=== PATIENT | male | born 1945 | race Caucasian/White ===

== ENCOUNTER 2018-01-29 05:55 | Inpatient (IN) | payer BC, OTHER ==
[2018-01-24 15:47] VITALS: BMI 27.7
[2018-01-29] MEDS ORDERED: DEXAMETHASONE SOD PHOSPHATE/PF 10 MG/ML SDV ONE (06:43)
[2018-01-29] MEDS ORDERED: MIDAZOLAM HCL 2 MG/2 ML SINGLE DOSE VIAL ONE ×2 (06:43→07:12)
[2018-01-29] MEDS ORDERED: ROPIVACAINE HCL 0.5% 30ML VIAL ONE (06:43)
[2018-01-29] MEDS ORDERED: PROPOFOL 20 ML ONE ×2 (07:12)
[2018-01-29] MEDS ORDERED: SUCCINYLCHOLINE CHLORIDE 200 MG/10 ML VIAL ONE (07:12)
--- NOTE | 2018-01-29 07:13 | HP ---
History & Physical Update - History History: No Change - Physical Physical: No Change - Assessment Assessment: No Change - Plan Plan: No Change (no interval changes in health since visit with Dr. Godinez on 01/21/18. will proceed with surgery as discussed with Dr Craven)
[2018-01-29] MEDS ORDERED: VANCOMYCIN 1,000 MG VIAL (RESTRICTED TO ID ONLY) ONE (07:22)
[2018-01-29] MEDS ORDERED: ceFAZolin SODIUM 1 GM VIAL ONE ×2 (07:44→09:14)
[2018-01-29] MEDS ORDERED: TRANEXAMIC ACID 1000 MG/10 ML VIAL ONE (07:56)
[2018-01-29] MEDS ORDERED: VANCOMYCIN 1,000 MG in DEXTROSE 5%-WATER - 250 ML IVPB ONE (08:00)
[2018-01-29] MEDS ORDERED: CEFAZOLIN 2 GM in DEXTROSE 5%-WATER - 50 ML IVPB ONE (08:00)
[2018-01-29] MEDS ORDERED: ROPIVICAINE 0.2%/MORPH PF/KETOROLAC - 51ML DISP.SYRINGE IA ONE (08:00)
[2018-01-29] MEDS ORDERED: TRANEXAMIC ACID 1000 MG/10 ML VIAL IVPUSH ONE (08:00)
[2018-01-29] MEDS ORDERED: LIDOCAINE HCL/PF 2% SDV 5ML VIAL ONE (08:05)
[2018-01-29] MEDS ORDERED: ROCURONIUM BROMIDE 50 MG/5 ML VIAL ONE (08:05)
--- NOTE | 2018-01-29 09:51 | OP ---
Operative Note - Note: Operative Date: 01/29/18 Pre-Operative Diagnosis: R hip DJD Operation: R CHRIS Implants: Dave. Cup - Tritanium 54mm. Poly - 28mm, neutral. Stem - Secure Fit Advanced #6. Head - 28mm, +12mm Post-Operative Diagnosis: Same as Pre-op Surgeon: Mil Craven Automated Process Operator: Tom Craven (Co-Surgeon) Anesthesiologist/BACKHAUL DRIVER: Chandu Amanda Anesthesia: General, Spinal Specimens Removed: Right femoral head Estimated Blood Loss (mls): 250 Drains & Tubes with Location: 1 x deep HemoVac Operative Report Dictated: Yes
--- NOTE | 2018-01-29 09:53 | PN ---
Progress Note (short form) - Note Progress Note: 72M s/p R CHRIS POD #0. -Pain control. -DVT PPx: - Mechanical: SCD's, IRMA's. - Chemical: ASA 81mg PO BID x 6 weeks. -Incentive spirometry. -PT/OT/Rehab, OOB. -WBAT RLE. -R hip precautions. -R hip abduction pillow. -f/u AM labs. -f/u drain output. -f/u TOV. -Care per medical hospitalist team. -Discharge planning. -Will follow. Tom Craven MD (Orthopaedic Surgery).
[2018-01-29] MEDS ORDERED: MAGNESIUM HYDROX 2400MG/30ML ORAL SUSPENSION 30 ML CUP PO PRN (09:54)
[2018-01-29] MEDS ORDERED: MAG HYDROX/AL HYDROX/SIMETH 30 ML UNIT-DOSE CUP PO PRN (09:54)
[2018-01-29] MEDS ORDERED: ONDANSETRON 4 MG/2 ML VIAL IVPUSH PRN ×2 (09:54→09:56)
[2018-01-29] MEDS ORDERED: oxyCODONE HCL 5 MG TABLET PO PRN (09:56)
[2018-01-29] MEDS ORDERED: GABAPENTIN 300 MG CAPSULE (FP) PO SCH (10:00)
[2018-01-29] MEDS ORDERED: LACTATED RINGERS SOLUTION 1,000 ML IV SCH ×2 (10:00)
[2018-01-29] MEDS ORDERED: ALBUTEROL SO4 18 GM HFA INHALER IH PRN (10:00)
[2018-01-29] MEDS ORDERED: ONDANSETRON 4 MG/2 ML VIAL IVPUSH ONE (10:13)
[2018-01-29] MEDS ORDERED: ACETAMINOPHEN 325 MG TABLET (FP) PO ONE (10:35)
[2018-01-29] MEDS ORDERED: oxyCODONE HCL 10 MG SUSTAINED ACTING TABLET ONE (10:36)
[2018-01-29] MEDS ORDERED: oxyCODONE HCL 10 MG SUSTAINED ACTING TABLET PO ONE (10:37)
--- NOTE | 2018-01-29 12:51 | SURG ---
Surgery Girls Swimming Coach Note Girls Swimming Coach: Adrienne Shah PA-C Date of Service: 01/29/18 Diagnosis: right hip OA Procedure: Right CHRIS I was present for the entirety of the operative procedure. For further detail, please refer to operative report. Visit type - Case Type Case Type: Scheduled Admission - Emergency Emergency Visit: No - New patient This patient is new to me today: Yes Date on this admission: 01/29/18
[2018-01-29] MEDS: oxyCODONE HCL 5 MG TABLET PO PRN ×2 (13:34→23:10)
[2018-01-29] MEDS: CEFAZOLIN 2 GM/D5W 2 GM/50 ML ML IVPB SCH (17:00)
[2018-01-29] MEDS ORDERED: VANCOMYCIN 1 GRAM (PRE-DOCKED) 1,000 MG/250 ML BAG IVPB ONE (21:00)
[2018-01-29] MEDS ORDERED: PT OWN MED DRAWER 7, Y5N ONE (21:05)
[2018-01-29] MEDS: OLANZapine 5 MG TABLET PO SCH (21:46)
[2018-01-29] MEDS: ASPIRIN 81 MG CHEWABLE TABLETS PO SCH (21:46)
[2018-01-29] MEDS: PREGABALIN 50 MG CAPSULE PO SCH (21:46)
[2018-01-29] MEDS: oxyCODONE HCL 10 MG SUSTAINED ACTING TABLET PO SCH (21:46)
[2018-01-29] MEDS: SENNOSIDES/DOCUSATE COMBO (SENNA PLUS) TABLET (UD) PO SCH (21:47)
[2018-01-29] MEDS: ACETAMINOPHEN 325 MG TABLET (FP) PO SCH (23:00)
[2018-01-30] MEDS: CEFAZOLIN 2 GM/D5W 2 GM/50 ML ML IVPB SCH (01:00)
[2018-01-30] MEDS: ACETAMINOPHEN 325 MG TABLET (FP) PO SCH ×5 (05:25→23:00)
[2018-01-30] MEDS: oxyCODONE HCL 5 MG TABLET PO PRN (05:30)
[2018-01-30] MEDS ORDERED: PT OWN MED DRAWER 7, Y5N ONE ×2 (05:32→21:46)
[2018-01-30] MEDS: SENNOSIDES/DOCUSATE COMBO (SENNA PLUS) TABLET (UD) PO SCH ×3 (08:49→22:31)
[2018-01-30] MEDS: oxyCODONE HCL 10 MG SUSTAINED ACTING TABLET PO SCH ×3 (08:49→22:31)
[2018-01-30] MEDS: PANTOPRAZOLE 40 MG TABLET (FP) PO SCH ×2 (08:49→09:46)
[2018-01-30 09:22] LABS: HEMATOCRIT 33.8 % (35.4-49); HEMOGLOBIN 11.3 GM/dl (11.7-16.9); MCH 29.1 pg (25.7-33.7); MCHC 33.4 g/dl (32.0-35.9); MEAN PLT VOLUME 7.5 fl (7.5-11.1); PLATELET COUNT 212 K/MM3 (134-434); RBC 3.89 M/mm3 (4.00-5.60); RDW 12.4 % (11.9-15.9); WHITE BLOOD COUNT 8.6 K/mm3 (4.0-10.8)
[2018-01-30 09:39] LABS: ANION GAP 5 (8-16); BLOOD UREA NITROGEN 18 mg/dl (7-18); CALCIUM 8.2 mg/dl (8.4-10.2); CHLORIDE 98 mmol/L (98-107); CO2 28 mmol/L (22-28); CREATININE 0.9 mg/dl (0.6-1.3); GLUCOSE,RANDOM 182 mg/dl (74-106); SODIUM 131 mmol/L (136-145)
[2018-01-30] MEDS: ASPIRIN 81 MG CHEWABLE TABLETS PO SCH ×2 (09:44→22:31)
--- NOTE | 2018-01-30 09:55 | CONSULT ---
Consultation: REQUESTING PROVIDER: Dr Craven CONSULT REQUEST: We have been asked to medically evaluate this patient for medical management. HISTORY OF PRESENT ILLNESS: Patient is a 72 y/o male with a past medical history of copd, spinal fusion, left hip osteoarthritis. Patient is s/p left hip replacement, Dr Craven, POD #1. REVIEW OF SYSTEMS: CONSTITUTIONAL: Absent: fever, chills, diaphoresis, generalized weakness, malaise, loss of appetite, weight change HEENT: Absent: rhinorrhea, nasal congestion, throat pain, throat swelling, difficulty swallowing, mouth swelling, ear pain, eye pain, visual changes CARDIOVASCULAR: Absent: chest pain, syncope, palpitations, irregular heart rate, lightheadedness , peripheral edema RESPIRATORY: Absent: cough, shortness of breath, dyspnea with exertion, orthopnea, wheezing, stridor, hemoptysis GASTROINTESTINAL: Absent: abdominal pain, abdominal distension, nausea, vomiting, diarrhea, constipation, melena, hematochezia GENITOURINARY: Absent: dysuria, frequency, urgency, hesitancy, hematuria, flank pain, genital pain MUSCULOSKELETAL: Present: left hip pain Absent: myalgia, arthralgia, joint swelling, back pain, neck pain SKIN: Absent: rash, itching, pallor HEMATOLOGIC/IMMUNOLOGIC: Absent: easy bleeding, easy bruising, lymphadenopathy, frequent infections ENDOCRINE: Absent: unexplained weight gain, unexplained weight loss, heat intolerance, cold intolerance NEUROLOGIC: Absent: headache, focal weakness or paresthesias, dizziness, unsteady gait, seizure, mental status changes, bladder or bowel incontinence PSYCHIATRIC: Absent: anxiety, depression, suicidal or homicidal ideation, hallucinations. PHYSICAL EXAMINATION Vital Signs - 24 hr 01/29/18 01/29/18 01/29/18 10:03 10:05 10:10 Temperature 98.8 F Pulse Rate 97 H 88 88 Respiratory 18 18 18 Rate Blood Pressure 151/88 156/82 150/85 O2 Sat by Pulse 96 98 100 Oximetry (%) 01/29/18 01/29/18 01/29/18 10:15 10:30 10:45 Temperature Pulse Rate 87 86 88 Respiratory 18 18 18 Rate Blood Pressure 139/79 139/68 164/98 O2 Sat by Pulse 100 99 98 Oximetry (%) 01/29/18 01/29/18 01/29/18 11:00 11:15 11:25 Temperature Pulse Rate 92 H 89 89 Respiratory 18 18 18 Rate Blood Pressure 153/90 167/86 167/86 O2 Sat by Pulse 100 100 Oximetry (%) 01/29/18 01/29/18 01/29/18 11:54 13:30 21:00 Temperature 98.8 F 98.9 F Pulse Rate 90 105 H Respiratory 16 17 19 Rate Blood Pressure 147/70 139/68 O2 Sat by Pulse 99 95 95 Oximetry (%) 01/29/18 01/30/18 01/30/18 21:30 00:05 06:55 Temperature 99.1 F 99.1 F 98.7 F Pulse Rate 99 H 99 H 100 H Respiratory 19 19 19 Rate Blood Pressure 124/69 124/69 147/79 O2 Sat by Pulse 95 95 Oximetry (%) GENERAL: Awake, alert, and fully oriented, in no acute distress. HEAD: Normal with no signs of trauma. EYES: Pupils equal, round and reactive to light, extraocular movements intact, sclera anicteric, conjunctiva clear. No lid lag. EARS, NOSE, THROAT: Ears normal, nares patent, oropharynx clear without exudates. Moist mucous membranes. NECK: Normal range of motion, supple without lymphadenopathy, JVD, or masses. LUNGS: Breath sounds equal, clear to auscultation bilaterally. No wheezes, and no crackles. No accessory muscle use. HEART: Regular rate and rhythm, normal S1 and S2 without murmur, rub or gallop. ABDOMEN: Soft, nontender, not distended, normoactive bowel sounds, no guarding, no rebound, no masses. No hepatomegaly or splenomegaly. MUSCULOSKELETAL: Normal range of motion at all joints. No bony deformities or tenderness. No CVA tenderness. UPPER EXTREMITIES: 2+ pulses, warm, well-perfused. No cyanosis. No clubbing. Cap refill <2 seconds. No peripheral edema. LOWER EXTREMITIES: right hip, surgical dressing intact, hemovac noted, sangeounous drainage noted, less than 3 second capillary refill, +3 pedal pulse. 2+ pulses, warm, well-perfused. No calf tenderness. No peripheral edema. NEUROLOGICAL: Cranial nerves II-XII intact. Normal speech. Normal gait. PSYCHIATRIC: Cooperative. Good eye contact. Appropriate mood and affect. SKIN: Warm, dry, normal turgor, no rashes or lesions noted. Laboratory Results - last 24 hr 01/30/18 01/30/18 08:50 08:50 WBC 8.6 RBC 3.89 L Hgb 11.3 L Hct 33.8 L MCV 87.0 MCH 29.1 MCHC 33.4 RDW 12.4 Plt Count 212 MPV 7.5 Sodium 131 L Potassium 4.0 Chloride 98 Carbon Dioxide 28 Anion Gap 5 L BUN 18 Creatinine 0.9 Random Glucose 182 H Calcium 8.2 L Active Medications Generic Name Dose Route Start Last Admin Trade Name Freq PRN Reason Stop Dose Admin Acetaminophen 650 mg 01/29/18 17:00 01/30/18 08:49 Tylenol - PO 02/01/18 16:59 Not Given Q6H LIBORIO Al Hydroxide/Mg Hydroxide 30 ml 01/29/18 09:54 Mylanta Oral Suspension - PO Q4H PRN DYSPEPSIA Albuterol Sulfate 1 puff 01/29/18 10:00 Ventolin Hfa Inhaler - IH Q8H PRN FOR SHORTNESS OF BREATH Aspirin 81 mg 01/29/18 22:00 01/30/18 09:44 Asa - PO 81 mg BID LIBORIO Administration Fentanyl 50 mcg 01/29/18 09:56 01/29/18 10:29 Sublimaze Injection - IVPUSH 50 mcg [id number] PRN Administration PAIN-PACU ORDER X 4 DOSES ONLY Magnesium Hydroxide 30 ml 01/29/18 09:54 Milk Of Magnesia - PO PRN PRN CONSTIPATION Olanzapine 10 mg 01/29/18 22:00 01/29/18 21:46 Zyprexa - PO 10 mg HS LIBORIO Administration Ondansetron HCl 4 mg 01/29/18 09:54 Zofran Injection IVPUSH Q6H PRN NAUSEA Oxycodone HCl 5 mg 01/29/18 09:56 Roxicodone - PO Q3H PRN PAIN LEVEL 1-5 Oxycodone HCl 10 mg 01/29/18 09:56 01/30/18 05:30 Roxicodone - PO 10 mg Q3H PRN Administration PAIN LEVEL 6-10 Oxycodone HCl 10 mg 01/29/18 10:00 01/30/18 09:46 Oxycontin - PO 02/01/18 09:57 10 mg BID LIBORIO Administration Pantoprazole Sodium 40 mg 01/29/18 10:00 01/30/18 09:46 Protonix - PO 40 mg DAILY LIBORIO Administration Pregabalin 50 mg 01/29/18 22:00 01/29/18 21:46 Lyrica - PO 50 mg HS LIBORIO Administration Senna/Docusate Sodium 2 tablet 01/29/18 10:00 01/30/18 09:44 Pericolace - PO 2 tablet BID LIBORIO Administration ASSESSMENT/PLAN: 1) MS s/p right hip replacement - hgb 11.3, stable, close monitoring - prn pain medication - physical therapy as per hthe orthopedist 2) pulm copd - continue albuterol PRN '- no acute excerbation at this time f/e/n - low sodium diet - replete lytes prn ppx - asa 81mg bid - protonix - incentive spirometer - scd/jose Dispo: We will continue to follow the patient. Thank you for this consultative opportunity. Visit type - Emergency Visit Emergency Visit: No - New Patient This patient is new to me today: Yes Date on this admission: 01/30/18 - Critical Care Critical Care patient: No
--- NOTE | 2018-01-30 12:18 | PN ---
Progress Note (short form) - Note Progress Note: 72M POD1 s/p right THR under spinal anesthetic with peripheral nerve blocks for post operative pain relief. Pt states that pain is well controlled, reports no anesthetic complications. AVSS. Sensory and motor function is intact in bilateral lower extremities. Continue current regimen.
[2018-01-30] MEDS: PREGABALIN 50 MG CAPSULE PO SCH (22:31)
[2018-01-30] MEDS: OLANZapine 5 MG TABLET PO SCH (22:32)
--- NOTE | 2018-01-30 23:51 | PN ---
Progress Note (short form) - Note Progress Note: 72M doing well s/p R CHRIS POD #1. Pain well controlled. No acute events overnight. Pt. denies overnight history of chest pain, shortness of breath, nausea, vomiting, chills, & sweats. (+) Voiding; (+) Flatus; (-) BM. All labs and vitals reviewed. PE: AAO x 3, NAD. L Hip: Dressing C/D/I. Drain intact & in place. NVI distally. 72M s/p R CHRIS POD #1. -Pain control. -DVT PPx: - Mechanical: SCD's, IRMA's. - Chemical: ASA 81mg PO BID x 6 weeks. -Incentive spirometry. -PT/OT/Rehab, OOB. -WBAT RLE. -R hip precautions. -R hip abduction pillow. -f/u AM labs. -f/u drain output. -f/u TOV. -Care per medical hospitalist team. -Discharge planning. -Will follow. Tom Craven MD (Orthopaedic Surgery)
[2018-01-31] MEDS: ACETAMINOPHEN 325 MG TABLET (FP) PO SCH ×2 (05:00→10:43)
[2018-01-31 09:15] LABS: HEMOGLOBIN 11.6 GM/dl (11.7-16.9); MCH 29.8 pg (25.7-33.7); MCHC 34.1 g/dl (32.0-35.9); MEAN CELL VOLUME 87.3 fl (80-96); MEAN PLT VOLUME 7.7 fl (7.5-11.1); PLATELET COUNT 230 K/MM3 (134-434); RDW 12.6 % (11.9-15.9); WHITE BLOOD COUNT 10.6 K/mm3 (4.0-10.8)
[2018-01-31] MEDS: oxyCODONE HCL 10 MG SUSTAINED ACTING TABLET PO SCH (10:43)
[2018-01-31] MEDS: ASPIRIN 81 MG CHEWABLE TABLETS PO SCH (10:43)
[2018-01-31] MEDS: SENNOSIDES/DOCUSATE COMBO (SENNA PLUS) TABLET (UD) PO SCH (10:43)
[2018-01-31] MEDS: PANTOPRAZOLE 40 MG TABLET (FP) PO SCH (10:44)
--- NOTE | 2018-01-31 12:56 | DS ---
Physical Exam: SUBJECTIVE: Patient seen and examined, reports feeling well, ambulatory throughout nursing station, patient denies any chest pain or shortness of breath. OBJECTIVE:Patient is a 72 y/o male with a past medical history of copd, spinal fusion, left hip osteoarthritis. Patient is s/p left hip replacement, Dr Craven Vital Signs Temperature 98.8 F 01/31/18 06:00 Pulse Rate 107 H 01/31/18 06:00 Respiratory Rate 18 01/31/18 08:53 Blood Pressure 174/84 01/31/18 06:00 O2 Sat by Pulse Oximetry (%) 96 01/31/18 08:53 PHYSICAL EXAM GENERAL: The patient is awake, alert, and fully oriented, in no acute distress. HEAD: Normal with no signs of trauma. EYES: PERRL, extraocular movements intact, sclera anicteric, conjunctiva clear. ENT: Ears normal, nares patent, oropharynx clear without exudates, moist mucous membranes. NECK: Trachea midline, full range of motion, supple. LUNGS: Breath sounds equal, clear to auscultation bilaterally, no wheezes, no crackles, no accessory muscle use. HEART: Regular rate and rhythm, S1, S2 without murmur, rub or gallop. ABDOMEN: Soft, nontender, nondistended, normoactive bowel sounds, no guarding, no rebound, no hepatosplenomegaly, no masses. EXTREMITIES: 2+ pulses, warm, well-perfused, no edema. LEFT LOWER EXTEMITY: dressing cdi, hemovac noted, discontinued, no drainage noted, less than 3 second capillary refill, + 3 pedal pulse NEUROLOGICAL: Cranial nerves II through XII grossly intact. Normal speech, gait not observed. PSYCH: Normal mood, normal affect. SKIN: Warm, dry, normal turgor, no rashes or lesions noted. LABS CBC,CMP WBC 10.6 K/mm3 (4.0-10.8) 01/31/18 08:55 RBC 3.90 M/mm3 (4.00-5.60) L 01/31/18 08:55 Hgb 11.6 GM/dl (11.7-16.9) L 01/31/18 08:55 Hct 34.0 % (35.4-49) L 01/31/18 08:55 MCV 87.3 fl (80-96) 01/31/18 08:55 MCH 29.8 pg (25.7-33.7) 01/31/18 08:55 MCHC 34.1 g/dl (32.0-35.9) 01/31/18 08:55 RDW 12.6 % (11.9-15.9) 01/31/18 08:55 Plt Count 230 K/MM3 (134-434) 01/31/18 08:55 MPV 7.7 fl (7.5-11.1) 01/31/18 08:55 Sodium 131 mmol/L (136-145) L 01/30/18 08:50 Potassium 4.0 mmol/L (3.5-5.1) 01/30/18 08:50 Chloride 98 mmol/L (98-107) 01/30/18 08:50 Carbon Dioxide 28 mmol/L (22-28) 01/30/18 08:50 Anion Gap 5 (8-16) L 01/30/18 08:50 BUN 18 mg/dl (7-18) 01/30/18 08:50 Creatinine 0.9 mg/dl (0.6-1.3) 01/30/18 08:50 Random Glucose 182 mg/dl (74-106) H 01/30/18 08:50 Calcium 8.2 mg/dl (8.4-10.2) L 01/30/18 08:50 HOSPITAL COURSE: The patient was admitted to the Med-Surg Unit after an elective repair left total hip replacement, Dr Craven. On post operative day 1, the patient ambulated the hallways with assistance. Narcotic and non-narcotic pain management control was achieved with an oral and IV approach. POD # 2 the surgical drain was removed fully intact and without incident. Greta-operative IV ABX were administered. DVT prophylaxis was achieved with SCDs and early ambulation. The patient ambulated with Physical Therapy and no services were recommended upon discharge. Narcotic scripts were checked with [employer] SUPERVISOR prior to escibe. The discharge instructions and an oral pain management plan were reviewed with the patient. All questions answered. Above plan discussed with Dr. Craven and agreed. Date of Admission:01/29/18 Date of Discharge: 01/31/18 Minutes to complete discharge: 45 Visit type - Case Type Case Type: Scheduled Admission - Emergency Emergency Visit: No - New patient This patient is new to [facility] today: No - Critical Care Critical Care patient: No
[2018-01-31 14:21] VITALS: BP 119/56; PULSE 90; TEMP 98.4
--- NOTE | 2018-01-31 15:45 | PATH ---
Surgical Pathology Report Patient Name: JOSE JETT Med. Rec. #: [id number] /Age/Gender: 1945 (Age: 72) / M Account: [id number] Location: [facility] MED-SURG Taken: 01/29/2018 Received: 01/29/2018 Reported: 01/31/2018 Physicians: Mil Craven M.D. Specimen(s) Received RIGHT FEMORAL HEAD Clinical History Unilateral primary osteoarthritis right hip Final Diagnosis BONE, RIGHT FEMORAL HEAD, REPLACEMENT: DEGENERATIVE JOINT DISEASE. Electronically Signed Dimas Forbes M.D. Gross Description Received in formalin, labeled "right femoral head," is a 4.5 x 4.5 x 4.3 cm. femoral head with a 1.8 cm in length portion of femoral neck attached. The margin of resection is smooth. There is a 1.2 cm greatest dimension area of eburnation identified. The remaining articular surface is gregg-yellow and diffusely granular. The underlying trabecular bone is yellow and hard. A dairy supplies sales representative section is submitted in one cassette, following decalcification. 01/30/2018 [facility]01/30/2018
--- NOTE | 2018-02-02 15:45 | OP ---
DATE OF OPERATION: DATE OF DICTATION: 02/02/2018 SURGEON: Mil Craven MD. CO-SURGEON: Tom Craven MD PREOPERATIVE DIAGNOSIS: Osteoarthritis, right hip. POSTOPERATIVE DIAGNOSIS: Osteoarthritis, right hip. OPERATION PERFORMED: Right cemented total hip arthroplasty (Dave). ANESTHESIA: Spinal epidural with conscious sedation. ANTIBIOTICS USED: Kefzol 2 g and 1 g vancomycin preoperatively. Intraoperatively 1 g Kefzol. OPERATION DETAILS: The patient was correctly identified and brought to the operating room. The right lower extremity was prepped and draped in a routine manner with Betadine scrub solution wiped off with alcohol and DuraPrep applied. A time-out was called. Imaging was available for intraoperative evaluation. Preoperative assessment the leg length discrepancy really noted; this was secondary to subsidence of the left total hip arthroplasty which will be dealt with at a separate setting for revision of total arthroplasty accordingly. The right lower extremity was flexed to 45 degrees at the hip and knee. A lateral incision was performed centered over the greater trochanter. The fascia was opened. A Charnley retractor was placed in the subfascial plane to give excellent exposure to the hip abductor mechanism using an anterior biased direct lateral approach. The soft tissues were opened by incising 1 cm of the anterior gluteus medius muscle and then lifting the entire capsule using sharp dissection from the superolateral to inferomedial aspect of the capsule. Radial cuts were made in the anterior aspect of the capsule to help facilitate complete exposure of the neck and femoral head. An abduction external rotation maneuver brought about an easy dislocation of the hip with no complications. Hohmann retractors were placed around the femoral neck. The femoral neck cut was made in accordance of the principles of [place] that is for the appropriate cut which was made as low as possible to try and shorten the limb on the right to accommodate the over lengthened right limb and to accommodate the left shortened limb. The cut was made just at the level above the trochanter. Retractors were placed anteriorly, posteriorly, and inferiorly into the obturator foramen and a superolateral acetabular retractor was applied as well. To give excellent exposure of the acetabulum the labrum was excised. The actual femur was then cut at the acetabulum reaming it to a size 55 and a size 56 Tritanium classic cup from [employer] was inserted for a 28-mm polyethylene liner to be inserted. A solid Press-Fit was achieved. The cup was seated at 10 degrees of anteversion and at 40 degrees of inclination. Once it had been performed, the hip was abducted and externally rotated. A Hohmann was placed behind the trochanter to keep the hip abductor out of harms way. Reaming and broaching with a size 6, it was trialed with a 127-degree high offset neck and a +12 head was utilized to increase the offset of the hip and apply stability as tested on the table. Once the trialing had been completed and we were happy with the appropriate length of the limb as well as the associated stability, the hip was placed through hip flexion, abduction, internal rotation as well as extension and external rotation. It was elected to go ahead with the definitive implant which was a Secur-Fit Advanced No. 6 127-degree stem with a +12 cobalt chromium femoral head. The hip was reduced. There were no complications. The closure was as follows: Hip abductor fascia 1 Vicryl, subcutaneous 1 and 2-0 Vicryl and skin with Monocryl with Steri-Strips. Drainage 1/8-inch Hemovac inserted. No complications. The patient was extricated out of the operating room with no complications for routine postoperative management. MD MARIVEL Fuentes/[id number]
== END 2018-01-31 16:30 | disposition home health service (06) | DRG 470 ==
LOC: FM/S 05:55
PROVIDERS: ADMIT Orthopaedic Surgery Orthopaedic Surgery of the Spine; ATTEND Orthopaedic Surgery Orthopaedic Surgery of the Spine
PROC: 0SR90J9 Replacement of Right Hip Joint with Synthetic Substitute, Cemented, Open Approach (ICD-10-PCS; principal; 2018-01-29 08:00)
DX: M16.11 Unilateral primary osteoarthritis, right hip (principal); J44.9 Chronic obstructive pulmonary disease, unspecified
CPT/HCPCS: 36415; 73502-TC-RT; 80048; 85027; 88304-TC; 88311-TC; 94010; 94760; 97116-GP; 97162-GP